=== PATIENT | female | born 1995 | race Caucasian/White ===

== ENCOUNTER → 2017-11-24 | Outpatient (CLI) | payer BC ==
[~2017-11-24] MED LIST: BIRTH CONTROL; GUAIFENESIN1200 MG PO; METPRE4DP PO; SUMA25 PO
[2017-11-24 18:09] LABS: Astrovirus Not Detected (NOT DETECT); Campylobacter Sp Not Detected (NOT DETECT); Cryptosporidium Not Detected (NOT DETECT); Cyclospora Cayetanensis Not Detected (NOT DETECT); E. Coli O157 Not Detected (NOT DETECT); Entamoeba Histolytica Not Detected (NOT DETECT); Enteroaggregative E. coli-EAEC Not Detected (NOT DETECT); Enteropathogenic E. coli-EPEC Not Detected (NOT DETECT); Enterotoxigenic E. coli-ETEC Not Detected (NOT DETECT); Giardia Lamblia Not Detected (NOT DETECT); Norovirus GI/GII Not Detected (NOT DETECT); Plesiomonas Shigelloides Not Detected (NOT DETECT); Rotavirus A Not Detected (NOT DETECT); Salmonella Sp Not Detected (NOT DETECT); Sapovirus Not Detected (NOT DETECT); Shiga Toxin-prod E. coli-STEC Not Detected (NOT DETECT); Shigella/Enteroin E. coli-EIEC Not Detected (NOT DETECT); Vibrio Cholerae Not Detected (NOT DETECT); Vibrio Sp Not Detected (NOT DETECT); Yersinia Enterocolitica Not Detected (NOT DETECT)
[2017-11-24 20:27] LABS: Adenovirus F 40/41 Detected (NOT DETECT)
== END ==
LOC: LAB EV 18:08 → LAB SHORT 18:08
PROVIDERS: Nurse Practitioner Family
DX: R19.7 Diarrhea, unspecified (principal); R10.30 Lower abdominal pain, unspecified
CPT/HCPCS: 87507

== ENCOUNTER → 2018-07-06 | Outpatient (CLI) | payer BC | END | disposition home or self-care (01) | LOC: LAB SHORT 19:12 → LAB EV 19:12 | DX: H10.9 Unspecified conjunctivitis (principal) | CPT/HCPCS: 87070; 87186; 87205 ==

== ENCOUNTER → 2020-04-21 | Outpatient (CLI) | payer SELFPAY ==
[~2020-04-21] MED LIST changes: +BENZ100A PO
== END | disposition home or self-care (01) ==
LOC: LAB SHORT 11:28 → LAB EV 11:28
DX: N39.0 Urinary tract infection, site not specified (principal)
CPT/HCPCS: 87077; 87086; 87186

== ENCOUNTER → 2024-10-04 | Outpatient (CLI) | payer BC | END | disposition home or self-care (01) | LOC: LAB SHORT 14:35 → LAB 14:35 | DX: O09.93 Supervision of high risk pregnancy, unspecified, third trimester (principal); Z3A.00 Weeks of gestation of pregnancy not specified | CPT/HCPCS: 87081; 87150 ==

== ENCOUNTER 2024-10-20 05:39 | Inpatient (IN) | payer BC ==
[2024-10-19 14:05] LABS: BASOPHILS ABSOLUTE AUTO 0.02 K/mm3 (0.00-0.23); BASOPHILS PERCENT AUTO 0 % (0-2); EOSINOPHILS ABSOLUTE AUTO 0.03 K/mm3 (0.00-0.68); EOSINOPHILS PERCENT AUTO 0 % (0-6); Hematocrit 36.2 % (33.0-51.0); Hemoglobin 12.1 g/dL (11.5-16.0); IMMATURE GRAN ABSOLUTE AUTO 0.05 K/mm3 (0.00-0.10); IMMATURE GRAN PERCENT AUTO 0 % (0-1); LYMPHOCYTES ABSOLUTE AUTO 1.96 K/mm3 (0.84-5.20); LYMPHOCYTES PERCENT AUTO 18 % (21-46); MONOCYTES ABSOLUTE AUTO 0.83 K/mm3 (0.16-1.47); MONOCYTES PERCENT AUTO 7 % (4-13); Mean Corpuscular HGB 27.9 pg (26.0-34.0); Mean Corpuscular HGB Conc 33.4 g/dL (31.5-36.5); Mean Corpuscular Volume 84 fL (80-100); Mean Platelet Volume 10.5 fL (9.1-12.4); NEUTROPHILS ABSOLUTE AUTO 8.29 K/mm3 (1.96-9.15); NEUTROPHILS PERCENT AUTO 74 % (41-73); Platelet Count 341 K/mm3 (150-400); RDW Coefficient Variation 13.4 % (11.7-14.2); RDW Standard Deviation 41.3 fL (35.1-46.3); Red Blood Cell Count 4.33 M/mm3 (3.80-5.20); White Blood Cell Count 11.18 K/mm3 (4.00-11.30)
[2024-10-20] VITALS (37 sets, daily range): BP systolic 114–168; BP diastolic 64–107
[~2024-10-20] VITALS: Ht 172.7 cm; Wt 128.2 kg
[2024-10-20] MEDS ORDERED: Metoclopramide HCl 5MG / ML 2ML Vial IV SCH (05:45)
[2024-10-20] MEDS ORDERED: Lactated Ringer's 1,000 ML IV SCH ×3 (05:45→09:00)
[2024-10-20] MEDS ORDERED: CeFAZolin Sodium 3,000 MG in NS 100 ML IV SCH (05:45)
[2024-10-20] MEDS ORDERED: Citric Acid/Sodium Citrate 30 ML BTL PO SCH (05:45)
[2024-10-20] MEDS ORDERED: Famotidine 10 MG/ML 2ML Vial IV ONE (07:20)
[2024-10-20] MEDS ORDERED: Ondansetron HCl 2 MG / ML 2ML Vial IV PRN ×2 (07:25→09:10)
[2024-10-20] MEDS ORDERED: Metoclopramide HCl 5MG / ML 2ML Vial IV PRN (07:25)
[2024-10-20] MEDS ORDERED: ePHEDrine Sulfate 50 MG/ML 1ML Injection IV PRN (07:25)
[2024-10-20] MEDS ORDERED: DiphenhydrAMINE HCl 50 MG/ML 1ML Vial IV PRN (07:30)
[2024-10-20] MEDS ORDERED: FentaNYL Citrate 50 MCG/ML 2 ML Injection ONE (07:41)
[2024-10-20] MEDS ORDERED: Dexamethasone Sod Phos 10 MG/ML 1ML VIAL ONE (07:50)
[2024-10-20] MEDS ORDERED: Ondansetron HCl 2 MG / ML 2ML Vial ONE (07:50)
[2024-10-20] MEDS ORDERED: Oxytocin 10 Unit / ML Vial ONE ×2 (07:55→08:38)
--- NOTE | 2024-10-20 08:34 | NUR ---
10/20/24 0834 Fay Zuleta VIABLE DELIVERY MALE BY PRIMARY C-SECIONT FOR BREECH PRESENTATION AT 0812 APGARS 8/9. WEIGHT 3125. CORD BLOOD SENT WITH CINDY MOREL. CORD GASES DECLINED.
[2024-10-20] MEDS ORDERED: Ketorolac Tromethamine 30mg Vial ONE (08:38)
[2024-10-20] MEDS ORDERED: Phenylephrine HCl 100 MCG/ML-NS 10MLSYR (1MG/10ML) ONE (08:38)
[2024-10-20] MEDS ORDERED: Magnesium Hydroxide Conc 10 ML UDC PO PRN (08:55)
[2024-10-20] MEDS ORDERED: Acetaminophen 500 MG Tab PO PRN (09:00)
[2024-10-20] MEDS ORDERED: Ketorolac Tromethamine 30mg Vial IV SCH (09:00)
[2024-10-20] MEDS ORDERED: Simethicone 80 MG Chew PO PRN (09:00)
[2024-10-20] MEDS ORDERED: Metoclopramide HCl 10 MG Tab PO PRN (09:00)
[2024-10-20] MEDS ORDERED: DiphenhydrAMINE HCL 25 MG Cap PO PRN (09:00)
[2024-10-20] MEDS ORDERED: Carboprost Tromethamine 250 MCG/ML 1ML Amp IM PRN (09:00)
[2024-10-20] MEDS ORDERED: Docusate Sodium 100 MG Cap PO SCH (09:00)
[2024-10-20] MEDS ORDERED: Rho(D) Immune Globulin 300 MCG / SYR IM ONE (09:00)
[2024-10-20] MEDS ORDERED: Promethazine HCl 25 MG Tab PO PRN (09:05)
[2024-10-20] MEDS ORDERED: OXYTOCIN/RINGER'S LACTATE 500 ML IV SCH (09:05)
[2024-10-20] MEDS ORDERED: Polyethylene Glycol 3350 17 gm PO PRN (09:05)
[2024-10-20] MEDS ORDERED: Morphine Sulfate 4 MG/1 ML Injection IV PRN (09:10)
[2024-10-20] MEDS ORDERED: Misoprostol 200 MCG Tab PR PRN (09:10)
[2024-10-20] MEDS ORDERED: Lanolin Cream TOP PRN (09:10)
[2024-10-20] MEDS ORDERED: OxyCODONE HCL 5 MG TAB PO PRN (09:10)
[2024-10-20] MEDS ORDERED: Labetalol HCL 100 MG TAB PO SCH (13:00)
[2024-10-20] MEDS ORDERED: Ibuprofen 400 MG Tab PO SCH (16:00)
[2024-10-20] MEDS ORDERED: Ibuprofen 400 MG Tab PO PRN (19:25)
[2024-10-20] MEDS ORDERED: Ketorolac Tromethamine 30mg Vial IV PRN (19:25)
[2024-10-21 03:38] VITALS: BP 159/104
--- NOTE | 2024-10-21 04:08 | NUR ---
Yany TO DR. ALVARES REGARDING PATIENT'S BLOOD PRESSURE 159/104. ORDER RECEIVED FOR 200MG LABETALOL NOW AND WILL ALSO CHANGE TO LABETALOL 200 MG Q8H.
[2024-10-21] MEDS ORDERED: Labetalol HCL 100 MG TAB PO ONE (04:10)
[2024-10-21 07:03] LABS: BASOPHILS ABSOLUTE AUTO 0.05 K/mm3 (0.00-0.23); BASOPHILS PERCENT AUTO 0 % (0-2); EOSINOPHILS ABSOLUTE AUTO 0.04 K/mm3 (0.00-0.68); EOSINOPHILS PERCENT AUTO 0 % (0-6); Hematocrit 30.6 % (33.0-51.0); Hemoglobin 9.8 g/dL (11.5-16.0); IMMATURE GRAN ABSOLUTE AUTO 0.07 K/mm3 (0.00-0.10); IMMATURE GRAN PERCENT AUTO 1 % (0-1); LYMPHOCYTES ABSOLUTE AUTO 3.83 K/mm3 (0.84-5.20); LYMPHOCYTES PERCENT AUTO 26 % (21-46); MONOCYTES ABSOLUTE AUTO 1.38 K/mm3 (0.16-1.47); MONOCYTES PERCENT AUTO 9 % (4-13); Mean Corpuscular HGB 27.5 pg (26.0-34.0); Mean Corpuscular Volume 86 fL (80-100); Mean Platelet Volume 10.3 fL (9.1-12.4); NEUTROPHILS ABSOLUTE AUTO 9.49 K/mm3 (1.96-9.15); NEUTROPHILS PERCENT AUTO 64 % (41-73); Platelet Count 296 K/mm3 (150-400); RDW Standard Deviation 43.8 fL (35.1-46.3); Red Blood Cell Count 3.56 M/mm3 (3.80-5.20); White Blood Cell Count 14.86 K/mm3 (4.00-11.30)
[2024-10-21] MEDS ORDERED: Labetalol HCL 100 MG TAB PO SCH (08:00)
[2024-10-21 08:27] VITALS: BP 131/81
[2024-10-21] MEDS ORDERED: Prenatal Vit/FE Fumarate/FA 1 Tab PO SCH (09:00)
[2024-10-21 12:23] VITALS: BP 120/75
[2024-10-21 15:43] VITALS: BP 165/93
[2024-10-21 16:17] VITALS: BP 144/84
--- NOTE | 2024-10-21 16:34 | NUR ---
1548 VITAL SIGNS PT HAD JUST BEEN UP TO THE BATHROOM AND RETURN TO BED CRYING STATING SHE IS STILL IN PAIN. BP CHECK WAS ELEVATED. PT REPORTS PAIN IS CRAMPING PAIN. MOTRIN GIVEN. PT'S SCHEDULED LABETALOL GIVEN. PT NO LONGER TEARFUL AND STATES PAIN IS BETTER NOW THAT SHE IS BACK IN BED. RECHECK BP DOWN TO 144/84. WILL CONTINUE TO MONITOR BP AND PAIN.
[2024-10-21 20:39] VITALS: BP 150/87
[2024-10-21] MEDS ORDERED: NIFEdipine 30 MG TabCR PO SCH (23:00)
[2024-10-22] VITALS (8 sets, daily range): BP systolic 119–159; BP diastolic 70–96
[2024-10-22 06:09] LABS: BASOPHILS ABSOLUTE AUTO 0.03 K/mm3 (0.00-0.23); BASOPHILS PERCENT AUTO 0 % (0-2); EOSINOPHILS ABSOLUTE AUTO 0.08 K/mm3 (0.00-0.68); EOSINOPHILS PERCENT AUTO 1 % (0-6); Hematocrit 29.2 % (33.0-51.0); Hemoglobin 9.6 g/dL (11.5-16.0); IMMATURE GRAN ABSOLUTE AUTO 0.08 K/mm3 (0.00-0.10); IMMATURE GRAN PERCENT AUTO 1 % (0-1); LYMPHOCYTES ABSOLUTE AUTO 3.34 K/mm3 (0.84-5.20); LYMPHOCYTES PERCENT AUTO 29 % (21-46); MONOCYTES ABSOLUTE AUTO 0.78 K/mm3 (0.16-1.47); MONOCYTES PERCENT AUTO 7 % (4-13); Mean Corpuscular HGB 28.1 pg (26.0-34.0); Mean Corpuscular HGB Conc 32.9 g/dL (31.5-36.5); Mean Corpuscular Volume 85 fL (80-100); Mean Platelet Volume 9.9 fL (9.1-12.4); NEUTROPHILS ABSOLUTE AUTO 7.24 K/mm3 (1.96-9.15); NEUTROPHILS PERCENT AUTO 63 % (41-73); Platelet Count 282 K/mm3 (150-400); RDW Coefficient Variation 14.4 % (11.7-14.2); RDW Standard Deviation 44.7 fL (35.1-46.3); Red Blood Cell Count 3.42 M/mm3 (3.80-5.20); White Blood Cell Count 11.55 K/mm3 (4.00-11.30)
[2024-10-22] MEDS ORDERED: Docusate Sodium/Senna 1 Tab PO PRN (06:55)
[2024-10-22] MEDS ORDERED: Simethicone 80 MG Chew PO PRN (06:55)
[2024-10-22] MEDS ORDERED: Polyethylene Glycol 3350 119 GM PO SCH (09:00)
[2024-10-22] MEDS ORDERED: OXAYDO5 M1 PO (17:26)
[2024-10-22] MEDS ORDERED: PRENATAL TABLE1 EAC2 PO (17:26)
[2024-10-22] MEDS ORDERED: IBUP800 PO (17:27)
== END 2024-10-22 19:20 | disposition home or self-care (01) | DRG 787 ==
LOC: BC 05:39
PROVIDERS: Family Medicine; ADMIT Obstetrics & Gynecology
PROC: 10D00Z1 Extraction of Products of Conception, Low, Open Approach (ICD-10-PCS; principal; 2024-10-20 07:30)
DX: O32.1XX0 Maternal care for breech presentation, not applicable or unspecified (principal); O99.214 Obesity complicating childbirth; O13.4 Gestational [pregnancy-induced] hypertension without significant proteinuria, complicating childbirth; O34.13 Maternal care for benign tumor of corpus uteri, third trimester; D25.9 Leiomyoma of uterus, unspecified; O90.2 Hematoma of obstetric wound; O24.439 Gestational diabetes mellitus in the puerperium, unspecified control; D62 Acute posthemorrhagic anemia; O90.81 Anemia of the puerperium; Z37.0 Single live birth; Z3A.39 39 weeks gestation of pregnancy
CPT/HCPCS: 36415; 36416; 82947; 85025; 86850; 86900; 86901; 86923; A9270; J0690; J1100; J1885; J2371; J2405; J2590; J2765; J3010; J7120